=== PATIENT | male | born 1960 | race Caucasian/White ===

== ENCOUNTER → 2017-11-11 | Outpatient (REF) ==
--- NOTE | 2017-11-11 18:06 | REP ---
Clinical: Pain and disability. Technique: AP, lateral, coned-down views of the lumbosacral spine. Findings: Moderate to advanced multilevel degenerative changes noted throughout the visualized lower thoracic and lumbosacral spine. Findings include osteophytosis, endplate sclerosis, disc space narrowing and hypertrophic facet changes. No acute fracture dislocation. Alignment and lordosis maintained. Impression: Moderate to advanced multilevel degenerative changes. Signed by Chandra Gonzalez MD 11/11/2017 02:58 P
--- NOTE | 2017-11-11 18:07 | REP ---
Clinical: Pain and disability. Technique: AP, lateral, swimmers views of the thoracic spine. Findings: Alignment and kyphosis maintained. No acute fracture / compression injury or subluxation identified. Moderate to advanced multilevel changes include bridging osteophyte, endplate sclerosis, and mild disc space narrowing. Impression: Moderate to advanced multilevel degenerative changes. Signed by Chandra Gonzalez MD 11/11/2017 02:59 P
== END ==
LOC: M SMT 12:54
PROVIDERS: ATTEND Internal Medicine
DX: Z02.9 Encounter for administrative examinations, unspecified (principal)

== ENCOUNTER → 2018-03-30 | Outpatient (CLI) | payer BC | LOC: M CARPUL 15:04 | DX: R06.00 Dyspnea, unspecified (principal) | CPT/HCPCS: 94060 ==

== ENCOUNTER → 2018-04-15 | Outpatient (CLI) | payer BC ==
[~2018-04-15] MED LIST: ISOVUE-370 76% 100ML VIAL (Q9967) As Ordered
== END ==
LOC: M RAD 08:36
DX: I65.23 Occlusion and stenosis of bilateral carotid arteries (principal); M50.10 Cervical disc disorder with radiculopathy, unspecified cervical region
CPT/HCPCS: Q9967

== ENCOUNTER → 2018-05-06 | Outpatient (CLI) | payer BC | LOC: M SLEEP HO 10:21 | DX: G47.9 Sleep disorder, unspecified (principal) ==

== ENCOUNTER → 2018-07-18 | Outpatient (CLI) | payer BC | LOC: M SLEEP 20:00 | DX: G47.33 Obstructive sleep apnea (adult) (pediatric) (principal) | CPT/HCPCS: 95811 ==

== ENCOUNTER → 2018-10-18 | Outpatient (CLI) | payer BC | LOC: M RAD 16:03 | DX: G47.33 Obstructive sleep apnea (adult) (pediatric) (principal) | CPT/HCPCS: 71250 ==

== ENCOUNTER 2019-03-01 16:23 | Emergency (ER) | payer BC ==
[~2019-03-01] VITALS: Ht 167.6 cm; Wt 125.3 kg
[2019-03-01] MEDS ORDERED: AZEL1SPR3 (16:36)
[2019-03-01] MEDS ORDERED: INVO300T PO (16:36)
[2019-03-01] MEDS ORDERED: GLIM4TAB PO (16:36)
[2019-03-01] MEDS ORDERED: IPRA0.00 (16:36)
[2019-03-01] MEDS ORDERED: LOSA100T50 PO (16:36)
[2019-03-01] MEDS ORDERED: ASPI-225 PO (16:36)
[2019-03-01] MEDS ORDERED: POTA20TA6 PO (16:36)
[2019-03-01] MEDS ORDERED: LANTINJ4 SQ (16:36)
[2019-03-01] MEDS ORDERED: SYMB16INH (16:36)
[2019-03-01] MEDS ORDERED: METF10004 PO (16:36)
[2019-03-01] MEDS ORDERED: FURO20TA2 PO (16:36)
[2019-03-01] MEDS ORDERED: NAPR-885 PO (16:36)
[2019-03-01] MEDS ORDERED: JANU100T PO (16:36)
[2019-03-01] MEDS ORDERED: ATOR40TA75 PO (16:36)
[2019-03-01] MEDS ORDERED: CHLO50TA PO (16:36)
[2019-03-01] MEDS ORDERED: OMEP-221 PO (16:36)
[2019-03-01 18:25] LABS: BASO % 0.3 % (0.0-1.0); EOS # 0.1 10^3/uL (0.0-0.50); EOS % 0.7 % (0.0-3.0); HEMATOCRIT 47.5 % (42.0-52.0); HEMOGLOBIN 14.9 g/dl (13.5-17.5); LYMPH # 0.6 10^3/uL (1.5-4.5); LYMPH % 3.9 % (24.0-44.0); MEAN CORPUSCULAR HEMOGLOBIN 24.4 pg (27.0-33.0); MEAN CORPUSCULAR HGB CONC 31.4 g/dl (32.0-36.5); MEAN CORPUSCULAR VOLUME 77.9 fl (80.0-96.0); MONO # 0.6 10^3/uL (0.0-0.8); MONO % 3.7 % (0.0-5.0); NEUTROPHILS # 14.1 10^3/uL (1.8-7.7); NEUTROPHILS % 90.5 % (36.0-66.0); PLATELET COUNT, AUTOMATED 284 10^3/uL (150-450); WHITE BLOOD COUNT 15.6 10^3/uL (4.0-10.0)
[2019-03-01] MEDS ORDERED: GI COCKTAIL 50ML BTL(HYOSCYAMINE/MAALOX/LIDOCAINE VISCOUS)(1:3:1) PO ONE (18:30)
--- NOTE | 2019-03-01 18:37 | REP ---
PA and lateral chest: Comparison is 03/11/2018. There is chronic elevation of the left hemidiaphragm, unchanged. There are no acute infiltrates. No pleural effusions. Lung bryan otherwise clear and unchanged. Cardiac size is upper normal, unchanged. The konstantin, mediastinum, and skeletal structures are unremarkable. Impression: No acute cardiopulmonary findings. Electronically Signed by Basim Sarkar MD 03/01/2019 06:29 P
[2019-03-01 18:49] LABS: ALBUMIN 3.9 GM/DL (3.2-5.2); ALT/SGPT 262 U/L (12-78); BILIRUBIN,DIRECT 2.6 MG/DL (0.0-0.2); BILIRUBIN,TOTAL 3.6 MG/DL (0.2-1.0); BLOOD UREA NITROGEN 21 MG/DL (7-18); CALCIUM LEVEL 9.8 MG/DL (8.5-10.1); CARBON DIOXIDE LEVEL 31 MEQ/L (21-32); CHLORIDE LEVEL 95 MEQ/L (98-107); CPK CREATINE PHOSPHOKINASE 131 U/L (39-308); CREATININE FOR GFR 0.91 MG/DL (0.70-1.30); GLOMERULAR FILTRATION RATE > 60.0 (>56); GLUCOSE, FASTING 153 MG/DL (70-100); LIPASE 754 U/L (73-393); MB/CK RELATIVE INDEX 0.99 (< OR =4); POTASSIUM SERUM 3.5 MEQ/L (3.5-5.1); SODIUM LEVEL 134 MEQ/L (136-145); TOTAL PROTEIN 7.1 GM/DL (6.4-8.2); TROPONIN I 0.03 NG/ML (< 0.10)
--- NOTE | 2019-03-01 20:53 | REPVR ---
EXAM: US Abdomen Limited, Right Upper Quadrant EXAM DATE/TIME: 03/01/2019 7:53 PM CLINICAL HISTORY: 58 years old, male; Pain; Abdominal pain; Acute; Additional info: Abd pain, elev liver enzymes, eval for helen TECHNIQUE: Imaging protocol: Real-time ultrasound of the abdomen with image documentation. Examination was focused on the right upper quadrant. COMPARISON: No relevant prior studies available. FINDINGS: Liver: There is marked increased echogenicity of the liver consistent with severe fatty infiltration. The gallbladder wall measures approximately 2 mm. Gallbladder: There is a 4 mm echogenic focus along the anterior aspect of the gallbladder probably a small cholesterol type polyp. There may be additional small echogenic polyps at the dependent portion of gallbladder. I would recommend a CT scan for further evaluation. There is no definite evidence of gallstones. Common bile duct: The common bile duct is difficult to identify with certainty. The common bile duct may be top normal in size at 7 mm. Pancreas: Bowel gas completely obscures the pancreas. Right kidney: The right kidney measures 10.8 CM in length and there is no evidence of hydronephrosis. Other findings: The exam is limited because of the patient's body habitus. The patient refused to lie down for the examination and therefore the exam was done upright. This further limited exam. IMPRESSION: 1. Severe fatty infiltration of the liver. 2. Probable scattered small cholesterol type polyps of the gallbladder. 3. Imaging severely limited as discussed above recommend CT scan for a complete evaluation. 4. The pancreas was not able to be evaluated secondary to bowel gas and positioning. 5. Difficulty imaging the common bile duct as well. Electronically signed by: Reddy Tatum On 03/01/2019 20:53:45 PM
[2019-03-01] MEDS ORDERED: ISOVUE-370 76% 100ML VIAL (Q9967) As Ordered ONE (22:11)
--- NOTE | 2019-03-01 23:05 | REPVR ---
EXAM: CT Abdomen and Pelvis With Contrast EXAM DATE/TIME: 03/01/2019 10:25 PM CLINICAL HISTORY: 58 years old, male; Pain; Abdominal pain; Generalized; Additional info: Abn US, rad rec CT for further eval of gb, cbd TECHNIQUE: Imaging protocol: Axial computed tomography images of the abdomen and pelvis with intravenous contrast. Coronal and sagittal reformatted images were created and reviewed. Radiation optimization: All CT scans at this facility use at least one of these dose optimization techniques: automated exposure control; mA and/or kV adjustment per patient size (includes targeted exams where dose is matched to clinical indication); or iterative reconstruction. Contrast material: ISOVUE 370 Contrast volume: 100 ml Contrast route: IV COMPARISON: Abdomen, limited US 03/01/2019 7:36 PM FINDINGS: Lower thorax: There is segmental atelectasis at the posterior left lung base. There are air bronchograms. There could be pneumonic infiltrate. Normal-sized heart. No pericardial effusion. There is elevation of the left hemidiaphragm. ABDOMEN: Liver: There is mild fatty infiltration of the liver. Gallbladder and bile ducts: Normal appearing gallbladder. The common bile duct is not enlarged and there is no evidence of intrahepatic biliary dilatation. Pancreas: Normal pancreas. Spleen: Normal appearing spleen. Adrenals: Normal adrenal glands. Kidneys and ureters: There is an enhancement of both kidneys. There is no evidence of hydronephrosis. Stomach and bowel: The cecum is in the right pelvis. The appendix appears within the range of normal. There are few air-fluid levels within the small bowel which could be due to mild ileus or mild enteritis. Appendix: See Stomach And Bowel Finding. PELVIS: Bladder: Unremarkable as visualized. Reproductive: Unremarkable as visualized. ABDOMEN and PELVIS: Intraperitoneal space: Normal. No free air. No significant fluid collection. Bones/joints: There are multiple large posterior osteophytes throughout the lower thoracic and lumbar spine causing severe central spinal canal stenosis especially from L3-S1. Soft tissues: Unremarkable. Vasculature: There is opacification of the aorta which appears intact. Lymph nodes: There are small lymph nodes surrounding the aorta. Other findings: On the ultrasound there is concern of tiny echogenic polyps. These are not appreciated on the CT and there is no focal mass seen. Unfortunately there is patient motion which degrades image quality and lowers the sensitivity of the exam. IMPRESSION: 1. Moderate fatty infiltration of the liver. 2. No evidence of inflammation along the margins of the gallbladder Electronically signed by: Reddy Tatum On 03/01/2019 23:04:46 PM
[2019-03-01 23:31] VITALS: BP 140/89
--- NOTE | 2019-03-02 08:23 | ECGEPIP ---
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
[2019-03-02 09:21] LABS: HEPATITIS B SURFACE ANTIGEN NEGATIVE (NEGATIVE)
[2019-03-02 09:51] LABS: HEPATITIS A ANTIBODY IGM NEGATIVE (NEGATIVE); HEPATITIS B CORE ANTIBODY IGM NEGATIVE (NEGATIVE)
== END 2019-03-01 23:42 | disposition home or self-care (01) ==
LOC: M ED 16:23
DX: K76.0 Fatty (change of) liver, not elsewhere classified (principal); R94.5 Abnormal results of liver function studies; I44.0 Atrioventricular block, first degree; I44.4 Left anterior fascicular block; E11.9 Type 2 diabetes mellitus without complications; I10 Essential (primary) hypertension; K21.9 Gastro-esophageal reflux disease without esophagitis; E78.00 Pure hypercholesterolemia, unspecified; G47.30 Sleep apnea, unspecified; Z79.82 Long term (current) use of aspirin; Z79.4 Long term (current) use of insulin; Z79.899 Other long term (current) drug therapy
CPT/HCPCS: 71046; 74177; 76705; 80048; 80076; 81001; 82550; 82553; 83605; 83690; 84484; 85025; 86705; 86709; 86803; 87340; 93005; 99284; Q9967

== ENCOUNTER → 2019-10-12 | Outpatient (REF) | payer BC ==
[~2019-10-12] MED LIST changes: +ASPI-225 PO; +ATOR40TA75 PO; +AZEL1SPR3; +CHLO50TA PO; +FURO20TA2 PO; +GLIM4TAB3 PO; +INVO300T PO; +IPRA0.00; -ISOVUE-370 76% 100ML VIAL (Q9967) As Ordered; +JANU100T PO; +LANTINJ4 SQ; +LOSA100T50 PO; +METF10004 PO; +NAPR-885 PO; +OMEP-221 PO; +POTA20TA6 PO; +SYMB16INH
[2019-10-12 14:42] LABS: CREATININE, URINE 55.9 MG/DL; MALB URINE SIEMENS 6.4 MG/L; MAU/CREAT RATIO 11.4 MCG/MG (0.0-30.0)
== END ==
LOC: M LAB REF 13:17
PROVIDERS: ATTEND Physician Assistant
DX: E11.65 Type 2 diabetes mellitus with hyperglycemia (principal)

== ENCOUNTER → 2020-07-26 | Outpatient (CLI) | payer MEDICARE, BC ==
[~2020-07-26] MED LIST changes: -ASPI-225 PO; +ASPI81TA78 PO; -AZEL1SPR3; +AZEL1SPR3 NARES; +D31000TA2 PO; +ELIQ5TAB PO; -GLIM4TAB3 PO; +GLIM4TAB5 PO; +GLUCTAB6 PO; -IPRA0.00; +IPRA0.00 INH; +MOME50SP NARES; +NADO20TA PO; +NYST10CR TOP; +PROAAER10 INH; +ROSU5TAB5 PO; -SYMB16INH; +SYMB16INH INH; +TRUL0.5I SC; +VASC1CAP2 PO
--- NOTE | 2020-08-03 15:13 | SLEEPCENT ---
DATE: 07/26/2020 ORDERED BY: Nkechi Chawla M.D. Nocturnal polysomnography was performed for the retitration of pressure therapy in this patient with obstructive sleep apnea syndrome. For testing, ResMed F20 full-face mask of medium size was used and initial pressure of 5 cm of water was applied to the circuit and the lights were extinguished. Seven hours and 40 minutes of data reviewed. There was 256 minutes of sleep identified. Sleep latency was prolonged at 59.5 minutes. REM latency was very prolonged at 336 minutes. Sleep architecture improved very late in the study with one REM cycle. Overall sleep efficiency is 57.1%. The patient's electrocardiogram showed a sinus rhythm with an average heart rate of 60 beats per minute. EEG showed low amplitude. No focal events were seen. There were normal waveforms for wake and sleep. Persistence of obstructive respiratory events prompted an increase in pressure therapy and despite optimal mask fit and minimal air leak, the patient required a change to a bilevel therapy. Best sleep was seen at a bilevel device; inspiratory pressure of 19 over expiratory pressure of 15. Despite optimal pressure therapy, oxygen desaturations were appreciated prompting the addition of supplemental oxygen. Late in the study, reasonable sleep was achieved on bilevel pressure therapy with supplemental oxygen. IMPRESSION: Severe obstructive sleep apnea syndrome (G47.33). RECOMMENDATION: Nightly use of bilevel pressure therapy, inspiratory pressure 19 over expiratory pressure of 15 with oxygen at 2 liters per minute bled through the system. Given the difficulty with titration and the late hour when optimal pressure was achieved, close clinical followup is recommended and the patient may require an increase in oxygen flow rate, particularly during REM. MTDD
== END ==
LOC: M SLEEP 20:00
PROVIDERS: ATTEND Internal Medicine Pulmonary Disease
DX: G47.33 Obstructive sleep apnea (adult) (pediatric) (principal)

== ENCOUNTER 2020-09-12 16:51 | Inpatient (IN) | payer MEDICARE, BC ==
[~2020-09-12] VITALS: Ht 167.6 cm; Wt 123.0 kg
[2020-09-12] MEDS: AZELASTINE 137MCG NASAL SPY 30 ML (ASTELIN) SCH (07:00)
[~2020-09-12 16:51] MED LIST changes: -D31000TA2 PO; -ELIQ5TAB PO; -GLUCTAB6 PO; -MOME50SP NARES; -NADO20TA PO; -NYST10CR TOP; -PROAAER10 INH; -ROSU5TAB5 PO; -TRUL0.5I SC; -VASC1CAP2 PO
[2020-09-12] MEDS ORDERED: METOPROLOL TART 25 MG TABLET PO ONE ×2 (17:30→18:45)
--- NOTE | 2020-09-12 17:37 | REPVR ---
PROCEDURE INFORMATION: Exam: XR Chest, 1 View Exam date and time: 09/12/2020 5:02 PM Age: 60 years old Clinical indication: Chest pain TECHNIQUE: Imaging protocol: XR of the chest Views: Frontal portable upright view of the chest. COMPARISON: CT Chest without contrast 10/18/2018 4:21 PM FINDINGS: Lungs: Moderate pulmonary hypoexpansion. Mild left basilar pulmonary subsegmental atelectasis. The pulmonary vasculature is exaggerated by inspiratory volume. Pleural space: No pleural effusion. No pneumothorax. Heart/Mediastinum: The heart is normal in size and contour. Mediastinum: Stable. Bones/joints: Right lateral vertebral body marginal osteophytes are noted at multiple thoracic spinal levels. IMPRESSION: 1. Moderate pulmonary hypoexpansion. 2. Mild left basilar pulmonary subsegmental atelectasis. Electronically signed by: Gerber Nguyen On 09/12/2020 17:37:42 PM
[2020-09-12 17:42] LABS: BASO # 0.1 10^3/uL (0.0-0.2); BASO % 0.5 % (0.0-1.0); EOS # 0.2 10^3/uL (0.0-0.5); EOS % 1.6 % (0.0-3.0); HEMATOCRIT 52.1 % (42.0-52.0); HEMOGLOBIN 16.3 g/dl (13.5-17.5); LYMPH # 1.7 10^3/uL (1.5-5.0); LYMPH % 15.3 % (24.0-44.0); MEAN CORPUSCULAR HEMOGLOBIN 25.7 pg (27.0-33.0); MEAN CORPUSCULAR HGB CONC 31.3 g/dl (32.0-36.5); MEAN CORPUSCULAR VOLUME 82.2 fl (80.0-96.0); MONO # 0.8 10^3/uL (0.0-0.8); MONO % 7.5 % (0.0-5.0); NEUTROPHILS # 8.2 10^3/uL (1.5-8.5); NEUTROPHILS % 74.5 % (36.0-66.0); PLATELET COUNT, AUTOMATED 336 10^3/uL (150-450); RED BLOOD COUNT 6.34 10^6/uL (4.30-6.10)
[2020-09-12] MEDS: METOPROLOL 5 MG/5 ML VIAL IV SCH ×6 (17:54→19:28)
[2020-09-12 18:04] LABS: ETHYL ALCOHOL (ETHANOL) < 0.003 % (0.000-0.010)
[2020-09-12 18:20] LABS: AMPHETAMINES LEVEL URINE NEGATIVE (NEGATIVE); BARBITURATES URINE NEGATIVE (NEGATIVE); BENZODIAZEPINES URINE NEGATIVE (NEGATIVE); CANNABINOIDS URINE NEGATIVE (NEGATIVE); COCAINE METABOLITE URINE NEGATIVE (NEGATIVE); METHADONE URINE NEGATIVE (NEGATIVE); OPIATES URINE NEGATIVE (NEGATIVE); PHENCYCLIDINE URINE NEGATIVE (NEGATIVE)
[2020-09-12 18:43] LABS: NT-PRO BNP 732 PG/ML (<125)
[2020-09-12] MEDS ORDERED: APIXABAN 5 MG TAB (ELIQUIS) PO ONE (19:00)
--- NOTE | 2020-09-12 20:13 | HPEPDOC ---
[facility] Medical History & Physical Date of Admission Sep 12, 2020 Date of Service: Sep 12, 2020 Primary Care Physician: Connie Campoverde MD Attending Physician: TAMMI CORTES MD History and Physical TIME OF SERVICE: 9:22 PM CHIEF COMPLAINT: Sent from PCPs office HISTORY OF PRESENT ILLNESS: This 60-year-old gentleman was sent from Dr. Vidal's office for evaluation of new onset atrial fibrillation. He denied having chest pain, palpitations, or lower extremity edema. Yesterday he developed shortness of breath and a cough productive of white sputum along with chills. He denied having any sick contacts or traveling; he thought he might have an upper respiratory tract infection. The ER provider discussed these findings with Dr. Bañuelos who recommended starting Eliquis a medication for rate control; the pateint was given Lopressor but continued to be in RVR. REVIEW OF SYSTEMS: 12 point review of systems negative except as listed in HPI PAST MEDICAL/ SURGICAL HISTORY: Newly diagnosed atrial fibrillation Chronic RBBB Dyslipidemia Chronic HTN ANNALISE on CPAP GERD Type 2 diabetes Restrictive lung disease Impaired vision, uses glasses SOCIAL HISTORY: He smokes cigars occasionally He doesn't drink alcohol He doesn't use drugs FAMILY HISTORY: Diabetes ALLERGIES: Please see below. HOME MEDICATIONS: Please see below. PHYSICAL EXAMINATION: Vital Signs Date Time Temp Pulse Resp B/P (MAP) Pulse Ox O2 Delivery O2 Flow Rate FiO2 09/12/20 16:52 98.6 52 20 95 Room Air 09/12/20 16:56 152/92 GEN: Obese/ well developed/ NAD INTEGUMENT: not flushed/ not jaundice HEENT: lips acyanotic /mucus membranes moist and pink CVS: HR rapid and irregularly irregular / NMRG/ radial pulses regularly irregular LUNGS: able to speak full sentences without stopping to take a breath / lungs are clear to auscultation bilaterally on room air ABDOMEN: Contour ( obese) / soft & not tender with palpation MSK/EXTREMITIES: NCAT / range of motion intact in all 4 extremities / he has chronic swelling at his left lower leg NEURO: CN 2-12 are grossly intact / speech is not dysarthric PSYCH: alert and oriented to person place and time/ able to understand and follow all commands LABORATORY DATA: 09/12/20 17:23 09/12/20 17:23: Immature Granulocyte % (Auto) 0.6, Neutrophils (%) (Auto) 74.5H, Lymphocytes (%) (Auto) 15.3L, Monocytes (%) (Auto) 7.5H, Eosinophils (%) (Auto) 1.6, Basophils (%) (Auto) 0.5, Neutrophils # (Auto) 8.2, Lymphocytes # (Auto) 1.7, Monocytes # (Auto) 0.8, Eosinophils # (Auto) 0.2, Basophils # (Auto) 0.1, Nucleated Red Blood Cells % (auto) 0.0, Magnesium Level 2.0, DK-Bjl-D-Type Natriuretic Peptide 732H, Ethyl Alcohol Level < 0.003 09/12/20 17:25: POC Troponin I (Misc) 0.02 09/12/20 17:39: POC Glucose (Misc Panel) 168H, POC Sodium (Misc Panel) 141, POC Potassium (Misc Panel) 3.4L, POC Chloride (Misc Panel) 99, POC Total CO2 (Misc Panel) 28.0H, POC Blood Urea Nitrogen (Misc Panel 30H, POC Ionized Calcium (Misc Panel) 4.7, POC Creatinine (Misc Panel) 0.9, POC Hematocrit (Misc Panel) 52.0H 09/12/20 17:41: Urine Opiates Screen NEGATIVE, Urine Methadone Screen NEGATIVE, Urine Barbiturates Screen NEGATIVE, Urine Phencyclidine Screen NEGATIVE, Urine Amphetamines Screen NEGATIVE, Urine Benzodiazepines Screen NEGATIVE, Urine Cocaine Metabolite Screen NEGATIVE, Urine Cannabinoids Screen NEGATIVE IMAGING: Chest x-ray "IMPRESSION: 1. Moderate pulmonary hypoexpansion. 2. Mild left basilar pulmonary subsegmental atelectasis." ASSESSMENT: Mr. Christy is a 60-year-old with a history of newly diagnosed atrial fibrillation, diabetes, dyslipidemia, hypertension, ANNALISE, and restrictive lung disease who was sent from his PCPs office for management of of new onset atrial fibrillation. PLAN: 1. New onset atrial fibrillation -Possible causes include HTN, CHF, HTN, or beta agonist use -EKG showed a fib w RVR w a rate of 149 -BNP was slightly elevated -K was low -The chest xray and respiratory panel were unrevealing -Trop, TSH, Ca were wnl -CHADS VASC Score to determine risk of stroke = 2 points = AC indicated Plan: admit to ICU / telemetry / digoxin & eliquis / will ask staff to obtain Echo report from 's office / f/u serial Trops 2. Hypokalemia -Possibly due to beta agonist use Plan: replete K and f/u Mg 3. DM2 Plan: diabetic diet / f/u accuchecks & A1C / hypoglycemia protocol / sliding scale insulin / hold oral anti-glycemics / long acting insulin 30 units QHS / he is on ASA, a statin and ARB 4. Chronic Resistant ? HTN Plan: nadolol, chlorthalidone, furosemide w KCl & losartan 5. Restrictive lung disease Plan: albuterol, Symbicort 6. ANNALISE Plan: CPAP 7. Dyslipidemia Plan: rosuvastatin 8. GERD Plan: omeprazole 9. Class 3 obesity -complicates care Plan: since he has a BMI >35 and has failed to meet glycemic goals despite optimized medical tx & lifestyle modifications they he should be referred for bariatric surgery bc metabolic surgery demonstrates greater improvements in glycemic control & cardiovascular risk factors when compared with optimized medical tz and lifestyle modifications alone DVT PROPHYLAXIS: n/a he is on a NOAC DISPOSITION: home after more than 2 midnight's stay Home Medications Scheduled Aspirin (Aspirin EC) 81 Mg Tablet.dr, 81 MG PO DAILY Azelastine HCl (Azelastine HCl) 137 Mcg/0.137 Ml Salyer.pump, 1 SPRAY NARES BID Budesonide/Formoterol (Symbicort 160-4.5 Mcg Inhaler) 6 Gm Hfa.aer.ad, 2 PUFFS INH BID Canagliflozin (Invokana) 300 Mg Tablet, 300 MG PO DAILY Chlorthalidone (Chlorthalidone) 50 Mg Tablet, 50 MG PO DAILY Cholecalciferol (Vitamin D3) (Vitamin D3) 1,000 Unit Tablet, 2,000 UNITS PO DAILY Dulaglutide (Trulicity) 1.5 Mg/0.5 Ml Pen.injctr, 1.5 MG SC QWEEK SATURDAYS Glimepiride (Glimepiride) 4 Mg Tablet, 6 MG PO DAILY Gluc Camacho/Chondro Camacho A/Vit C/Mn (Glucosamine Chondroitin Tab) 1 Each Tablet, 1 TAB PO DAILY Icosapent Ethyl (Vascepa) 1 Gm Capsule, 2 GM PO BID Insulin Glargine,Hum.rec.anlog (Lantus Solostar) 100 Unit/1 Ml Insuln.pen, 38 UNITS SQ QHS Ipratropium/Albuterol Sulfate (Iprat-Albut 0.5-3(2.5) mg/3 ml) 3 Ml Ampul.neb, 1 VIAL INH TID Losartan Potassium (Losartan Potassium) 100 Mg Tablet, 100 MG PO DAILY Metformin HCl (Metformin HCl) 1,000 Mg Tablet, 1,000 MG PO BIDWM Mometasone Furoate Monohydrate (Nasonex) 17 Gm Salyer.pump, 2 SPRAYS NARES DAILY Nadolol (Nadolol) 20 Mg Tablet, 40 MG PO DAILY Naproxen (Naproxen) 500 Mg Tablet, 500 MG PO DAILY Omeprazole (Omeprazole) 40 Mg Capsule.dr, 40 MG PO DAILY Potassium Chloride (Potassium Chloride) 20 Meq Tab.er.prt, 20 MEQ PO BID Rosuvastatin Calcium (Rosuvastatin Calcium) 5 Mg Tablet, 5 MG PO QHS Scheduled PRN Albuterol Sulfate (Proair Hfa) 8.5 Gm Hfa.aer.ad, 2 PUFF INH QID PRN for SOB/WHEEZING Furosemide (Furosemide) 20 Mg Tablet, 20 MG PO DAILY PRN for EDEMA Nystatin (Nystatin) 15 Gm Cream..g., 1 APLCT TOP TID PRN for RASH APPLY TO GROIN Allergies Coded Allergies: No Known Allergies (Unverified , 03/01/19) A-FIB/CHADSVASC A-FIB History Current/History of A-Fib/PAF?: Yes Current PO Anticoag Therapy: Yes TAMMI CORTES MD Sep 12, 2020 20:13
[2020-09-12] MEDS ORDERED: POTASSIUM CHLORIDE 10% LIQ 20 MEQ/15 ML UDC PO ONE (20:15)
[2020-09-12] MEDS ORDERED: DEXTROSE 50% 50 ML SYRINGE IV PRN (20:15)
[2020-09-12] MEDS ORDERED: MOM 30ML SUSPENSION UDC PO PRN (20:15)
[2020-09-12] MEDS ORDERED: MAALOX 30 ML SUSP *UDC PO PRN (20:15)
[2020-09-12] MEDS ORDERED: GLUCAGON INJ 1MG VIAL SC PRN (20:15)
[2020-09-12] MEDS ORDERED: ACETAMINOPHEN TAB 650MG DOSE (2X325MG) PO PRN (20:15)
[2020-09-12] MEDS ORDERED: GLUCOSE 4GM CHEW TABLET PO PRN (20:15)
[2020-09-12] MEDS ORDERED: VASC1CAP2 PO (20:24)
[2020-09-12] MEDS ORDERED: GLUCTAB6 PO (20:24)
[2020-09-12] MEDS ORDERED: MOME50SP NARES (20:24)
[2020-09-12] MEDS ORDERED: TRUL0.5I SC (20:24)
[2020-09-12] MEDS ORDERED: NADO20TA PO (20:24)
[2020-09-12] MEDS ORDERED: NYST10CR TOP (20:24)
[2020-09-12] MEDS ORDERED: ROSU5TAB5 PO (20:24)
[2020-09-12] MEDS ORDERED: D31000TA2 PO (20:24)
[2020-09-12] MEDS ORDERED: PROAAER10 INH (20:24)
[2020-09-12] MEDS ORDERED: HumaLOG INSULIN (NovoLOG) PER UNIT SC SCH (21:00)
[2020-09-12 21:08] LABS: INR 0.91; PROTHROMBIN TIME 12.4 SECONDS (12.5-14.3)
[2020-09-12 21:09] LABS: PARTIAL THROMBOPLASTIN TIME 29.7 SECONDS (24.2-38.5)
[2020-09-12 21:51] LABS: CALCIUM LEVEL 9.6 MG/DL (8.5-10.1); PHOSPHORUS LEVEL 4.1 MG/DL (2.5-4.9)
[2020-09-12 22:26] VITALS: BP 102/72
[2020-09-12 22:30] VITALS: BP 102/72
--- NOTE | 2020-09-12 22:58 | ECGEPIP ---
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
[2020-09-12] MEDS ORDERED: IPRATROPIUM 0.5MG/ALBUTEROL 2.5MG INH SOL UD 3ML (DUONEB) INH SCH (23:00)
[2020-09-12] MEDS ORDERED: FUROSEMIDE 20 MG TAB PO PRN (23:00)
[2020-09-12] MEDS ORDERED: LEVEMIR (INSULIN DETEMIR) 1 UNITS/0.01ML SQ SCH (23:00)
[2020-09-12] MEDS ORDERED: DIGOXIN INJ 0.5 MG/2 ML AMP (J1160) IV ONE (23:00)
[2020-09-12] MEDS ORDERED: SYMBICORT 160/4.5MCG INHALER 6GM INH SCH (23:00)
[2020-09-12] MEDS ORDERED: ROSUVASTATIN 10 MG TAB (CRESTOR) PO SCH (23:00)
[2020-09-12] MEDS ORDERED: NYSTATIN CREAM 15 GM TOP PRN (23:00)
[2020-09-12] MEDS ORDERED: ALBUTEROL 90 MCG/ACT 8GM HFA INHALER INH PRN (23:00)
[2020-09-12] MEDS: POTASSIUM CHLORIDE 10 MEQ SR TABLET PO SCH (23:47)
[2020-09-13] VITALS (7 sets, daily range): BP systolic 101–113; BP diastolic 63–70
[2020-09-13 04:48] LABS: HEMATOCRIT 49.8 % (42.0-52.0); HEMOGLOBIN 15.2 g/dl (13.5-17.5); MEAN CORPUSCULAR HEMOGLOBIN 24.9 pg (27.0-33.0); MEAN CORPUSCULAR HGB CONC 30.5 g/dl (32.0-36.5); MEAN CORPUSCULAR VOLUME 81.5 fl (80.0-96.0); PLATELET COUNT, AUTOMATED 319 10^3/uL (150-450); RED BLOOD COUNT 6.11 10^6/uL (4.30-6.10); WHITE BLOOD COUNT 10.2 10^3/uL (4.0-10.0)
[2020-09-13 05:19] LABS: BLOOD UREA NITROGEN 27 MG/DL (7-18); CALCIUM LEVEL 9.5 MG/DL (8.5-10.1); CARBON DIOXIDE LEVEL 32 MEQ/L (21-32); CHLORIDE LEVEL 104 MEQ/L (98-107); CREATININE FOR GFR 0.66 MG/DL (0.70-1.30); GLOMERULAR FILTRATION RATE > 60.0 (>56); GLUCOSE, FASTING 174 MG/DL (70-100); HEMOGLOBIN A1c 7.1 %; POTASSIUM SERUM 3.2 MEQ/L (3.5-5.1); SODIUM LEVEL 139 MEQ/L (136-145)
[2020-09-13] MEDS ORDERED: POTASSIUM CHLORIDE 10 MEQ SR TABLET PO ONE (05:45)
[2020-09-13] MEDS ORDERED: HumaLOG INSULIN (NovoLOG) PER UNIT SC SCH (07:30)
[2020-09-13] MEDS: AZELASTINE 137MCG NASAL SPY 30 ML (ASTELIN) SCH (08:33)
[2020-09-13] MEDS: POTASSIUM CHLORIDE 10 MEQ SR TABLET PO SCH (08:46)
[2020-09-13] MEDS ORDERED: FLUTICASONE PROP 0.05% NASAL SPRAY 16 GM (FLONASE) NARES SCH (09:00)
[2020-09-13] MEDS ORDERED: NADOLOL 20MG TABLET PO SCH (09:00)
[2020-09-13] MEDS ORDERED: CHLORTHALIDONE 25 MG TAB PO SCH (09:00)
[2020-09-13] MEDS ORDERED: OMEPRAZOLE 20 MG CAP PO SCH (09:00)
[2020-09-13] MEDS ORDERED: APIXABAN 2.5 MG TAB (ELIQUIS) PO SCH (09:00)
[2020-09-13] MEDS ORDERED: ASPIRIN 81 MG ENTERIC TAB PO SCH (09:00)
[2020-09-13] MEDS ORDERED: VITAMIN D 1,000 INTERNATIONAL UNITS TABLET PO SCH (09:00)
[2020-09-13] MEDS ORDERED: LOSARTAN 50MG TABLET PO SCH (09:00)
[2020-09-13] MEDS ORDERED: ELIQ5TAB PO ×2 (09:37→10:56)
[2020-09-13] MEDS ORDERED: FLUBLOK(EGG FREE)(QUAD)INFLUENZA VACC 0.5ML SYRINGE 18YRS & OLDER IM ONE (10:30)
--- NOTE | 2020-09-15 12:28 | DS.PDOC ---
Discharge Summary General Date of Admission Sep 12, 2020 at 20:02 Date of Discharge 09/13/20 Discharge Summary PROCEDURES PERFORMED DURING STAY: [None]. DISCHARGE DIAGNOSES: Paroxysmal atrial fibrillation with RVR Viral URI Hypokalemia Morbid obesity ANNALISE on CPAP Chronic RBBB Dyslipidemia HTN GERD Type 2 diabetes Restrictive lung disease COMPLICATIONS/CHIEF COMPLAINT: Atrial Fibrillation With Rvr. HOSPITAL COURSE: This 60-year-old gentleman was sent from PMD's office for evaluation of new onset atrial fibrillation. He had developed shortness of breath and a cough productive of white sputum along with chills. He has mallika having a cold for the last few days and he was taking over the counter cough syrup. He denied having any sick contacts or traveling; He thought he might have an upper respiratory tract infection but as it was not getting better went to see his PMD. He was found to have Afib with RVR. He was admitted for Afib with RVR. New onset atrial fibrillation now i sinus rhythm paroxysmal started on eliquis. ASA stopped. Hypokalemia replaced DM2 continue home meds. continue statin and ARB Hypertension nadolol, chlorthalidone, losartan Restrictive lung disease albuterol, Symbicort ANNALISE CPAP Dyslipidemia rosuvastatin GERD omeprazole Morbid obesity BMI of 43.8 follow up with PMD DISCHARGE MEDICATIONS: Please see below. ALLERGIES: Please see below. PHYSICAL EXAMINATION ON DISCHARGE: VITAL SIGNS: Please see below. GEN: Obese/ well developed/ NAD HEENT: lips acyanotic /mucus membranes moist and pink CVS: rate normal, regular/ No Murmur or Rub or Gallop LUNGS: lungs are clear to auscultation bilaterally on room air ABDOMEN: Contour ( obese) / soft & not tender with palpation, bowel sounds normal MSK/EXTREMITIES: NCAT / range of motion intact in all 4 extremities / he has chronic swelling at his left lower leg NEURO: CN 2-12 are grossly intact / speech is not dysarthric PSYCH: alert and oriented to person place and time/ able to understand and follow all commands LABORATORY DATA: Please see below. ACTIVITY: [As tolerated]. DIET: Carb consistent DISPOSITION: 01 Home, Self-Care. DISCHARGE INSTRUCTIONS: Follow up with PMD in 1 week DISCHARGE CONDITION: [Stable]. TIME SPENT ON DISCHARGE: 35 minutes. Vital Signs/I&Os Vital Signs Date Time Temp Pulse Resp B/P (MAP) Pulse Ox O2 Delivery O2 Flow Rate FiO2 10/22/20 10:00 65 18 101/69 (80) 95 Room Air 09/13/20 08:00 98.6 09/13/20 04:00 2.0 Laboratory Data CBC/BMP Item Value Date Time White Blood Count 10.2 10^3/uL H 09/13/20 0424 Red Blood Count 6.11 10^6/uL H 09/13/20 0424 Hemoglobin 15.2 g/dl 09/13/20 0424 Hematocrit 49.8 % 09/13/20 0424 Mean Corpuscular Volume 81.5 fl 09/13/20 0424 Mean Corpuscular Hemoglobin 24.9 pg L 09/13/20 0424 Mean Corpuscular Hemoglobin Concent 30.5 g/dl L 09/13/20 0424 Red Cell Distribution Width 16.4 % H 09/13/20 0424 Platelet Count 319 10^3/uL 09/13/20 0424 Sodium Level 139 MEQ/L 09/13/20 0424 Potassium Level 3.2 MEQ/L L 09/13/20 0424 Chloride Level 104 MEQ/L 09/13/20 0424 Carbon Dioxide Level 32 MEQ/L 09/13/20 0424 Anion Gap 3 MEQ/L L 09/13/20 0424 Blood Urea Nitrogen 27 MG/DL H 09/13/20 0424 Creatinine 0.66 MG/DL L 09/13/20 0424 Glomerular Filtration Rate > 60.0 09/13/20 0424 Fasting Glucose 174 MG/DL H 09/13/20 0424 Estimated Mean Plasma Glucose 157 MG/DL H 09/13/20 0424 Hemoglobin A1c 7.1 % 09/13/20 0424 Calcium Level 9.5 MG/DL 09/13/20 0424 Magnesium Level 2.0 MG/DL 09/13/20 0424 Discharge Medications Scheduled Apixaban (Eliquis) 5 Mg Tablet, 1 TAB PO BID Azelastine HCl (Azelastine HCl) 137 Mcg/0.137 Ml [place].pump, 1 SPRAY NARES BID, (Reported) Budesonide/Formoterol (Symbicort 160-4.5 Mcg Inhaler) 6 Gm Hfa.aer.ad, 2 PUFFS INH BID, (Reported) Canagliflozin (Invokana) 300 Mg Tablet, 300 MG PO DAILY, (Reported) Chlorthalidone (Chlorthalidone) 50 Mg Tablet, 50 MG PO DAILY, (Reported) Cholecalciferol (Vitamin D3) (Vitamin D3) 1,000 Unit Tablet, 2,000 UNITS PO DAILY, (Reported) Dulaglutide (Trulicity) 1.5 Mg/0.5 Ml Pen.injctr, 1.5 MG SC QWEEK, (Reported) SATURDAYS Glimepiride (Glimepiride) 4 Mg Tablet, 6 MG PO DAILY, (Reported) Gluc Camacho/Chondro Camacho A/Vit C/Mn (Glucosamine Chondroitin Tab) 1 Each Tablet, 1 TAB PO DAILY, (Reported) Icosapent Ethyl (Vascepa) 1 Gm Capsule, 2 GM PO BID, (Reported) Insulin Glargine,Hum.rec.anlog (Lantus Solostar) 100 Unit/1 Ml Insuln.pen, 38 UNITS SQ QHS, (Reported) Ipratropium/Albuterol Sulfate (Iprat-Albut 0.5-3(2.5) mg/3 ml) 3 Ml Ampul.neb, 1 VIAL INH TID, (Reported) Losartan Potassium (Losartan Potassium) 100 Mg Tablet, 100 MG PO DAILY, (Reported) Metformin HCl (Metformin HCl) 1,000 Mg Tablet, 1,000 MG PO BIDWM, (Reported) Mometasone Furoate Monohydrate (Nasonex) 17 Gm Alger.pump, 2 SPRAYS NARES DAILY, (Reported) Nadolol (Nadolol) 20 Mg Tablet, 40 MG PO DAILY, (Reported) Naproxen (Naproxen) 500 Mg Tablet, 500 MG PO DAILY, (Reported) Omeprazole (Omeprazole) 40 Mg Capsule.dr, 40 MG PO DAILY, (Reported) Potassium Chloride (Potassium Chloride) 20 Meq Tab.er.prt, 20 MEQ PO BID, (Reported) Rosuvastatin Calcium (Rosuvastatin Calcium) 5 Mg Tablet, 5 MG PO QHS, (Reported) Scheduled PRN Albuterol Sulfate (Proair Hfa) 8.5 Gm Hfa.aer.ad, 2 PUFF INH QID PRN for SOB/WHEEZING, (Reported) Furosemide (Furosemide) 20 Mg Tablet, 20 MG PO DAILY PRN for EDEMA, (Reported) Nystatin (Nystatin) 15 Gm Cream..g., 1 APLCT TOP TID PRN for RASH, (Reported) APPLY TO GROIN Allergies Coded Allergies: No Known Allergies (Unverified , 03/01/19) RADHA MASSEY MD Sep 15, 2020 12:28
== END 2020-09-13 11:12 | disposition home or self-care (01) | DRG 309 ==
LOC: M ED 16:51 → M ED INP 20:02 → ENRESERV 21:04 → M ICU 22:10
PROVIDERS: ADMIT Internal Medicine; ATTEND Internal Medicine
DX: I48.91 Unspecified atrial fibrillation (principal); Z68.41 Body mass index [BMI] 40.0-44.9, adult; E66.9 Obesity, unspecified; I10 Essential (primary) hypertension; E87.6 Hypokalemia; E11.9 Type 2 diabetes mellitus without complications; G47.33 Obstructive sleep apnea (adult) (pediatric); K21.9 Gastro-esophageal reflux disease without esophagitis; I45.10 Unspecified right bundle-branch block; Z79.899 Other long term (current) drug therapy; Z79.82 Long term (current) use of aspirin

== ENCOUNTER → 2021-05-13 | Outpatient (REF) | payer MEDICARE, BC ==
[~2021-05-13] MED LIST changes: +D31000TA2 PO; +ELIQ5TAB PO; +GLUCTAB6 PO; +MOME50SP NARES; +NADO20TA PO; +NYST10CR TOP; +PROAAER10 INH; +ROSU5TAB5 PO; +TRUL0.5I SC; +VASC1CAP2 PO
[2021-05-13 18:30] LABS: CREATININE, URINE 18.4 MG/DL; MAU/CREAT RATIO 1315.2 MCG/MG (0.0-30.0)
== END ==
LOC: M LAB REF 16:05
PROVIDERS: ATTEND Internal Medicine Endocrinology, Diabetes & Metabolism
DX: E11.65 Type 2 diabetes mellitus with hyperglycemia (principal)

== ENCOUNTER → 2021-08-23 | Outpatient (CLI) | payer MEDICARE, BC | LOC: M PLAIMG 12:29 | PROVIDERS: ATTEND Internal Medicine Pulmonary Disease | DX: Z53.9 Procedure and treatment not carried out, unspecified reason (principal) ==

== ENCOUNTER → 2021-09-10 | Outpatient (CLI) | payer MEDICARE, BC ==
--- NOTE | 2021-09-10 15:38 | REP ---
INDICATION: SHORTNESS OF BREATH. COMPARISON: 09/12/2020 the latest prior TECHNIQUE: Three views FINDINGS: There is cardiomegaly status quo. There is persistent elevation of the diaphragmatic surface of the left lung status quo. The lung bryan are hypoexpanded status quo. This crowds the basilar vascularity. A left retrocardiac opacity may have developed since the last exam, however, there was no lateral view on the last exam. The inferior posterior lung bryan are slightly dense on today's lateral view. IMPRESSION: Findings and limitations as described above. I cannot rule out an acute left lower lobe opacity. <Electronically signed by Ricardo Maciel > 09/10/21 [id number]
[2021-09-10 16:34] LABS: ALBUMIN 3.6 GM/DL (3.2-5.2); ALT/SGPT 21 U/L (12-78); BILIRUBIN,TOTAL 1.4 MG/DL (0.2-1.0); BLOOD UREA NITROGEN 26 MG/DL (7-18); CALCIUM LEVEL 8.8 MG/DL (8.8-10.2); CARBON DIOXIDE LEVEL 32 MEQ/L (21-32); CHLORIDE LEVEL 107 MEQ/L (98-107); CREATININE FOR GFR 1.02 MG/DL (0.70-1.30); GLOMERULAR FILTRATION RATE > 60.0 (>49); GLUCOSE, FASTING 131 MG/DL (70-100); MAGNESIUM LEVEL 1.9 MG/DL (1.8-2.4); NT-PRO BNP 2110 PG/ML (<125); POTASSIUM SERUM 3.9 MEQ/L (3.5-5.1); SODIUM LEVEL 144 MEQ/L (136-145); TOTAL PROTEIN 6.7 GM/DL (6.4-8.2)
== END ==
LOC: M WUC 15:10
PROVIDERS: ATTEND Nurse Practitioner Family
DX: I51.7 Cardiomegaly (principal); N18.30 Chronic kidney disease, stage 3 unspecified; I50.32 Chronic diastolic (congestive) heart failure; I48.0 Paroxysmal atrial fibrillation; R06.02 Shortness of breath